=== PATIENT | male | born 1995 | race African-American/Black ===

== ENCOUNTER 2018-10-01 21:26 | Emergency (ER) | payer OTHER ==
[~2018-10-01] VITALS: Ht 160 cm; Wt 52.2 kg
[2018-10-01] MEDS ORDERED: AMOXICILLIN 50500 MG PO (21:36)
[2018-10-01] MEDS ORDERED: ULTRAM 50MG TAB50 MG PO (21:56)
[2018-10-01] MEDS ORDERED: IBUPROFEN200 M1 PO (21:56)
== END 2018-10-01 22:30 | disposition home or self-care (01) ==
LOC: ER 21:26
DX: K02.9 Dental caries, unspecified (principal); F17.210 Nicotine dependence, cigarettes, uncomplicated